=== PATIENT | male | born 1955 | race Caucasian/White ===

== ENCOUNTER 2020-04-26 22:32 | Inpatient (IN) | payer MEDICARE ==
[~2020-04-26 22:32] MED LIST: Iopamidol-370 76% 500 ML 1 ML ONE
[2020-04-26] MEDS ORDERED: Diltiazem 125 MG/25 ML ONE (23:09)
[2020-04-26 23:22] LABS: #Eosinphils 0.1 thou/uL (0.0-0.7); #Lymphocytes 2.6 thou/uL (1.20-3.40); #Monocytes 0.6 thou/uL (0.11-0.59); #Neutrophils 8.4 thou/uL (1.40-6.50); %Basophils 0.3 % (0.0-1.0); %Eosinophils 1.1 % (0.0-10.0); %Lymphocytes 21.7 % (21.0-51.0); %Monocytes 5.5 % (0.0-10.0); %Neutrophils 71.4 % (42.0-75.0); Hemoglobin 15.3 g/dL (14.0-18.0); Mean Corpuscular HGB CONC 33.4 g/dL (32.0-36.0); Mean Corpuscular Hemoglobin 31.3 pg (27.0-31.0); Mean Corpuscular Volume 93.6 fL (78.0-98.0); Mean Platelet Volume 7.6 fL (7.4-10.4); Platelet Count 219 thou/uL (130-400); RBC Distribution Width 12.6 % (11.5-14.5); Red Blood Cell (RBC) Count 4.91 mill/uL (4.70-6.10); White Blood Cell (WBC) Count 11.8 thou/uL (4.8-10.8)
[2020-04-26 23:47] LABS: ALT (SGPT) 63 U/L (8-55); AST (SGOT) 80 U/L (5-34); Albumin 4.2 g/dL (3.4-4.8); Alkaline Phosphatase 93 U/L (40-110); Anion Gap 17 mmol/L (10-20); BUN (Urea Nitrogen) 18 mg/dL (8.4-25.7); Bilirubin, Total 0.6 mg/dL (0.2-1.2); Calc. Creatinine Clearance 0 mL/min (70-130); Carbon Dioxide 23 mmol/L (23-31); Chloride 103 mmol/L (98-107); Globulin 3.7 g/dL (2.4-3.5); Glucose 215 mg/dL (80-115); Potassium 4.3 mmol/L (3.5-5.1); Protein, Total 7.9 g/dL (5.8-8.1); Sodium 139 mmol/L (136-145)
[2020-04-27 00:08] LABS: CKMB 6.6 ng/mL (0-6.6)
[2020-04-27 00:17] LABS: Calcium 9.1 mg/dL (7.8-10.44)
[2020-04-27 00:45] LABS: SARS-CoV-2 NAA Rapid Test DETECTED (NotDetected)
[2020-04-27] MEDS ORDERED: Aspirin 325 MG TAB ONE (01:02)
[2020-04-27 03:03] LABS: Troponin I 0.546 ng/mL (< 0.028)
[2020-04-27 03:21] VITALS: BMI 35.5
[2020-04-27] MEDS ORDERED: Acetaminophen 325 MG TAB PO PRN (04:04)
--- NOTE | 2020-04-27 04:04 | PDOC.HHP ---
Hospitalist HPI - History of Present Illness Shortness of breath History of Present Illness: This is a 64-year-old male patient with a history of hypertension who presents to the ED today with worsening cough and shortness of breath. Patient notes that his had Covid about 3 to 4 weeks ago and subsequently started having symptoms which she has not was Covid. These were initially mild however they have become significantly worse. He has had no test before today. On presentation Covid test was positive. He denied any associated chest pain or palpitations or fevers however he had a fatigability and generalized weakness. He denied any diarrhea. At presentation his blood pressure was 217/166, respiratory rate 45, temperature 99.1, saturating on room air between 95 and 99. His labs showed leukocytosis of 11.8, no bands, chemistry showed hyperglycemia of 215, AST 80 ALT 63 and troponin was elevated at 0.603. Chest x-ray was concerning for mild bilateral infiltrates. CTA was negative for PE. While being monitored he went into A. fib with RVR with heart rate above the 120s and was started on Cardizem drip which led to control of his heart rate. He also received aspirin prior to hospitalist consulted for admission. Hospitalist ROS - Review of Systems Constitutional: reports: weakness, malaise. denies: fever, chills, sweats Respiratory: reports: cough, dry, shortness of breath, SOB with excertion. denies: hemoptysis Cardiovascular: denies: chest pain, palpitations, orthopnea, paroxysmal noc. dyspnea Gastrointestinal: denies: nausea, vomiting, abdominal pain, diarrhea Genitourinary: denies: dysuria, frequency, incontinence, hematuria Neurological: denies: weakness, numbness, incoordination, change in speech All other systems reviewed; all pertinent +/- noted in HPI/Subj - Medication Medications: Medications: Currently refer to ambulatory list. Allergies: No known drug allergies. Hospitalist History - Past Medical History Cardiac: reports: HTN - Past Surgical History Past Surgical History: reports: no pertinent history - Family History Family History: reports: no pertinent history - Social History Smoking Status: Never smoker Alcohol: reports: None Living Situation: With Family Activity level: independent ambulation - Exam General Appearance: awake alert General - other findings: Morbidly obese ENT: normocephalic atraumatic Heart: RRR, no murmur, no gallops (Tachycardic), no rubs, normal peripheral pulses Respiratory: CTAB, no wheezes, no rales, no ronchi Gastrointestinal: soft, non-tender, non-distended, normal bowel sounds Extremities: no cyanosis, no clubbing, no edema Neurological: cranial nerve grossly intact, no focal deficits Psychiatric: normal affect, normal behavior, A&O x 3 Hospitalist Results - Labs Result Diagrams: 04/28/20 05:08 04/28/20 05:08 Lab results: WBC 11.8 thou/uL (4.8-10.8) H 04/26/20 23:07 Hgb 15.3 g/dL (14.0-18.0) 04/26/20 23:07 Hct 45.9 % (42.0-52.0) 04/26/20 23:07 MCV 93.6 fL (78.0-98.0) 04/26/20 23:07 Plt Count 219 thou/uL (130-400) 04/26/20 23:07 Neutrophils % 71.4 % (42.0-75.0) 04/26/20 23:07 Sodium 139 mmol/L (136-145) 04/26/20 23:07 Potassium 4.3 mmol/L (3.5-5.1) 04/26/20 23:07 Chloride 103 mmol/L (98-107) 04/26/20 23:07 Carbon Dioxide 23 mmol/L (23-31) 04/26/20 23:07 BUN 18 mg/dL (8.4-25.7) 04/26/20 23:07 Creatinine 1.18 mg/dL (0.7-1.3) 04/26/20 23:07 Glucose 215 mg/dL (80-115) H 04/26/20 23:07 Calcium 9.1 mg/dL (7.8-10.44) 04/26/20 23:07 Total Bilirubin 0.6 mg/dL (0.2-1.2) 04/26/20 23:07 AST 80 U/L (5-34) H 04/26/20 23:07 ALT 63 U/L (8-55) H 04/26/20 23:07 Alkaline Phosphatase 93 U/L (40-110) 04/26/20 23:07 CK-MB (CK-2) 6.6 ng/mL (0-6.6) 04/26/20 23:07 Troponin I 0.546 ng/mL (< 0.028) H* 04/27/20 02:30 B-Natriuretic Peptide 325.1 pg/mL (0-100) H 04/26/20 23:07 Serum Total Protein 7.9 g/dL (5.8-8.1) 04/26/20 23:07 Albumin 4.2 g/dL (3.4-4.8) 04/26/20 23:07 Hospitalist H&P A/P - Plan Plan: This is a 64-year-old male patient history of hypertension and obesity presenting with worsening shortness of breath in the setting of Covid 19 infection. New onset A. fib with RVR Possible triggersCovid, ACS, uncontrolled hypertension among others. Currently resolved with diltiazem Monitor on telemetry Echocardiogram in a.m. Cardiology consult in a.m. NSTEMI Troponin elevated at 0.6 Possible ACS but likely secondary to A. fib with RVR He does not have any chest pain no concerning EKG changes however He has risk factors of obesity and hypertension which has been uncontrolled. Start him on Lovenox for now pending review by cardiology COVID-19 infection Start zinc and vitamins Consider starting steroids in a.m. if he requires oxygen. Follow-up D-dimer, CRP and ferritin Hold remdesivir ID consult Hypertension Resume home blood pressure medications VT prophylaxisLovenox CODE STATUSfull code
[2020-04-27] MEDS ORDERED: Enoxaparin Sodium 100 MG/ML SYRINGE SC SCH (04:10)
[2020-04-27] MEDS ORDERED: HumaLOG 300 UNITS/3 ML VIAL SC PRN (04:12)
[2020-04-27] MEDS ORDERED: Dextrose 50% Abboject 50 ML SYRINGE SLOW IVP PRN (04:12)
[2020-04-27] MEDS ORDERED: Dextrose 5% in Water 1,000 ML IV PRN (04:12)
[2020-04-27] MEDS ORDERED: Enoxaparin Sodium 120 MG/0.8 ML SYRINGE SC SCH ×2 (04:15→21:00)
[2020-04-27 05:42] LABS: Hemoglobin A1c 5.7 % (4.0-6.0)
[2020-04-27 06:23] LABS: Cardiac Risk 3.8 (Less than 4.5)
--- NOTE | 2020-04-27 07:16 | RAD ---
PORTABLE CHEST: Date: 04/26/2020 HISTORY: Shortness of breath. FINDINGS: Heart size appears slightly enlarged. Pulmonary vessels are mildly engorged. Some bibasilar lung bonilla ges are present which could represent atelectasis or early infiltrate. It is difficult to exclude дмитрий e minimal ground-glass infiltrates on this exam. Slight blunting to the costophrenic angles is presen t. IMPRESSION: Cardiomegaly with mild vascular engorgement. Bibasilar lung changes could be on the basis of atelecta sis versus early infiltrate, perhaps with small effusions. POS: OFF
--- NOTE | 2020-04-27 07:30 | CT ---
PRELIMINARY REPORT/DIRECT RADIOLOGY/EMERGENCY AFTER HOURS PROCEDURE: EXAM: CTA Chest with Intravenous Contrast CLINICAL HISTORY: The patient reports that over the past several weeks he has had a cough with some s hortness of breath. He states that it has been significantly worse over the past 2 days. He also endorses having sensation of palpitations. He denies any significant pain in his chest. No fevers. He does note that his recently tested positive for Covid approximately 3 or 4 weeks ago. TECHNIQUE: Axial CTA images of the chest with intravenous contrast. Three-dimensional MIP/volume rend ered reformations were performed. CONTRAST: With; ISOVUE 370,80mL COMPARISON: None provided. FINDINGS: PULMONARY ARTERIES There is no intraluminal filling defect suspicious for PE. AORTA No thoracic aortic aneurysm or dissection. LUNGS There is mild atelectasis identified in both lower lungs. Moderate bilateral effusions are not ed. No consolidation. PLEURAL SPACES Moderate bilateral effusions are noted. No pneumothorax. HEART AND MEDIASTINUM No cardiomegaly. No significant pericardial effusion. LYMPH NODES No lymphadenopathy. BONES No focal osseous abnormality or acute fracture. CHEST WALL AND UPPER ABDOMEN Images through the upper abdomen are unremarkable. The chest wall is unr emarkable. IMPRESSION: There is mild atelectasis in both lower lungs. Moderate bilateral effusions are noted. No evidence of a consolidation. No pneumothorax. There is no evidence of pulmonary arterial emboli. ELECTRONICALLY SIGNED BY: Eduarda Way DO Apr 27, 2020 1:29:40 AM [employer] FINAL REPORT CTA ANGIO CHEST WITH AND WITHOUT CONTRAST: History: Dyspnea. Comparison: Radiograph prior day. Findings: CT angiogram chest performed after the intravenous ministration of contrast. 3-D rendering provided. Impression: Findings and impression are concordant with the preliminary report. No pulmonary embolism. Moderate d ecompensated congestive heart failure. Transcribed Date/Time: 04/27/2020 7:38 AM
[2020-04-27] MEDS: Zinc Sulfate 220 MG CAP PO SCH (08:54)
[2020-04-27] MEDS: Aspirin 81 mg Enteric Coated Tablet PO SCH (08:54)
[2020-04-27] MEDS: Ascorbic Acid 500 mg Chewable Tablet PO SCH (08:54)
[2020-04-27] MEDS: Cholecalciferol (Vitamin D3) 400 UNITS TAB PO SCH (08:54)
[2020-04-27] MEDS ORDERED: Dexamethasone 4 mg/ml Vial SLOW IVP SCH (09:00)
[2020-04-27] MEDS ORDERED: Enoxaparin Sodium 40 MG/0.4 ML SYRINGE SC SCH (09:00)
[2020-04-27] MEDS ORDERED: Amlodipine 10 MG TAB PO SCH (09:00)
--- NOTE | 2020-04-27 09:35 | PDOC.CONS ---
- Consultation Encounter Date: 04/27/20 Encounter Time: 09:30
[2020-04-27 09:43] LABS: Troponin I 0.853 ng/mL (< 0.028)
--- NOTE | 2020-04-27 09:59 | PDOC.HOSPP ---
- Subjective Encounter Date: 04/27/20 Encounter Time: 09:57 Subjective: Mr. Putnam was seen today in follow-up of new onset AFIb. He does not have any complaints. He did however note that he had some shortness of breath last night, while he was sleeping. He also noted that his oxygen saturations dropped last night,. and he has been using oxygen since. He denies chest pain. - Objective Vital Signs & Weight: Vital Signs (12 hours) Temp Pulse Resp BP Pulse Ox 04/27/20 08:54 99 04/27/20 03:22 98.1 F 99 28 H 178/95 H 97 Weight Weight 244 lb I&O: 04/26/20 04/27/20 04/28/20 06:59 06:59 06:59 Intake Total 245 Output Total 300 Balance -55 Result Diagrams: 04/26/20 23:07 04/26/20 23:07 Hospitalist ROS - Medication Medications: Active Medications Generic Name Dose Route Start Last Admin Trade Name Freq PRN Reason Stop Dose Admin Amlodipine Besylate 10 mg 04/27/20 09:00 04/27/20 08:54 Amlodipine 10 Mg Tab PO 10 mg DAILY MASSIMO Administration Ascorbic Acid 1,000 mg 04/27/20 09:00 04/27/20 08:54 Ascorbic Acid 500 Mg Chewable Tablet PO 1,000 mg DAILY MASSIMO Administration Aspirin 81 mg 04/27/20 09:00 04/27/20 08:54 Aspirin 81 Mg Enteric Coated Tablet PO 81 mg DAILY MASSIMO Administration Cholecalciferol 400 units 04/27/20 09:00 04/27/20 08:54 Cholecalciferol (Vitamin D3) 400 Units Tab PO 400 units DAILY MASSIMO Administration Dexamethasone 8 mg 04/27/20 09:00 04/27/20 08:54 Dexamethasone 4 Mg/Ml Vial SLOW IVP 8 mg DAILY MASSIMO Administration Enoxaparin Sodium 110 mg 04/27/20 21:00 04/27/20 09:01 Enoxaparin Sodium 120 Mg/0.8 Ml Syringe SC 110 mg 0900,2100 MASSIMO Administration Zinc Sulfate 220 mg 04/27/20 09:00 04/27/20 08:54 Zinc Sulfate 220 Mg Cap PO 220 mg DAILY MASSIMO Administration - Exam General Appearance: NAD, awake alert Eye: PERRL, anicteric sclera ENT: normocephalic atraumatic Neck: no JVD Heart: irregular, murmur present, II/IV Respiratory: no wheezes, no ronchi, rales (at the bases) Gastrointestinal: soft, non-tender, non-distended, normal bowel sounds, no palpable masses, no hepatomegaly Extremities: no cyanosis (+ good d.p. pulses bilaterally no lesions), no edema Hosp A/P (1) New onset atrial fibrillation Code(s): I48.91 - UNSPECIFIED ATRIAL FIBRILLATION Status: Acute (2) Hypertension Code(s): I10 - ESSENTIAL (PRIMARY) HYPERTENSION Status: Chronic (3) CHF (congestive heart failure) Code(s): I50.9 - HEART FAILURE, UNSPECIFIED Status: Acute (4) Pneumonia due to COVID-19 virus Code(s): U07.1 - COVID-19; J12.82 - PNEUMONIA DUE TO CORONAVIRUS DISEASE 2018 Status: Acute (5) NSTEMI (non-ST elevated myocardial infarction) Code(s): I21.4 - NON-ST ELEVATION (NSTEMI) MYOCARDIAL INFARCTION Status: Acute - Plan * AFIB with RVR- his heart rate has improved. He is now off the Cardizem drip- continue Lovenox for CVA preventions, and will attempt to obtain an Echo * Will await Cardiology recommendations * HTN- will place on a low dose Beta-tyra and consider TOYA-I * NSTEMI- Carvediolol, Nitrates, and check Lipid panel, * CHF- this may be due to AFIB, await Echo, and Lasix as needed * COVID infection- he believes this is remote infection. He had symptoms beginning about a month ago, which got better, and then over the past 3-4 days he began feeling short of breath again- this may be due to CHF, or he may have a superinfection with a bacterial pneumonia- will add Levaquin
[2020-04-27] MEDS ORDERED: hydrALAZINE 25 MG TAB PO PRN (10:10)
[2020-04-27] MEDS ORDERED: Metoprolol Tartrate 5 MG/5 ML VIAL IVP PRN (10:11)
--- NOTE | 2020-04-27 11:17 | CON ---
DATE OF CONSULTATION: HISTORY OF PRESENT ILLNESS: The patient is a very pleasant 64-year-old gentleman who presents for evaluation of dyspnea. The patient states he has a history of a heart murmur. The patient also has hypertension. The patient was on lisinopril for a period of time. The patient has not been followed up by a physician for several years. The patient reported having progressive dyspnea over the past several weeks. He presented to the emergency room and was noted to have a rapid irregular heart rhythm. The patient denied having any chest discomfort. PAST MEDICAL HISTORY: Hypertension. PAST SURGICAL HISTORY: Surgery on his big toe surgery. MEDICATIONS ON ADMISSION: 1. Aspirin half a tablet daily. 2. Meclizine. SOCIAL HISTORY: Nonsmoker. ALLERGIES: NO KNOWN DRUG ALLERGIES. REVIEW OF SYSTEMS: A 10-point system unremarkable. PHYSICAL EXAMINATION: GENERAL: A well-developed gentleman, in no acute distress. VITAL SIGNS: Blood pressure was 178/95. NECK: No jugular venous distention. LUNGS. He had a few crackles in both bases. HEART: Regular rate and rhythm. Normal S1 and S2 with a 3/6 systolic murmur. ABDOMEN: Distended. EXTREMITIES: Trace edema. VASCULAR: Radial pulses 2+. LABORATORY DATA: Sodium 139, potassium 4.3, chloride 103, bicarbonate 23, BUN 18, creatinine 1.1, glucose is 215, and AST is 80. Troponin was 0.603 with an MB of 6.6. White blood cell count 11.8, hemoglobin 15.3, hematocrit 45.0, and platelets 219. EKG atrial fibrillation with a rapid ventricular response and ST-T wave abnormality, suggestive of ischemia. Chest x-ray cardiomegaly with mild vascular engorgement. IMPRESSION: 1. COVID pneumonia. 2. Atrial fibrillation with a rapid ventricular response. 3. Elevated troponin level. 4. Probable aortic stenosis. 5. Hypertension. 6. Obesity. This gentleman presents with a COVID pneumonia and rapid atrial fibrillation. The patient has a type 2 myocardial infarction most likely secondary to his atrial fibrillation with rapid ventricular response. From a cardiac standpoint, I would recommend to be started on a beta-tyra therapy. The patient will be rate controlled when he recovers from his COVID. I would recommend an echocardiogram and stress testing. The patient should be on long-term anticoagulation as he has a CHADS-VASc score of 2. I will follow this patient with you through his hospitalization. Job ID: [id number] MTDD
[2020-04-27 12:02] LABS: Cardiac Risk 3.8 (Less than 4.5)
[2020-04-27] MEDS ORDERED: Nitroglycerin 2% Ointment 1 INCH/1 GM Packet TOP SCH (14:00)
[2020-04-27] MEDS ORDERED: Carvedilol 6.25 MG TAB PO SCH (17:00)
[2020-04-27] MEDS: Atorvastatin Calcium 40 MG TAB PO SCH (19:59)
[2020-04-27] MEDS: Enoxaparin Sodium 120 MG/0.8 ML SYRINGE SC SCH (20:01)
[2020-04-28 05:26] LABS: #Lymphocytes 1.8 thou/uL (1.20-3.40); #Monocytes 0.8 thou/uL (0.11-0.59); #Neutrophils 10.3 thou/uL (1.40-6.50); %Basophils 0.1 % (0.0-1.0); %Eosinophils 0.1 % (0.0-10.0); %Lymphocytes 13.6 % (21.0-51.0); %Monocytes 6.5 % (0.0-10.0); %Neutrophils 79.8 % (42.0-75.0); Hemoglobin 12.8 g/dL (14.0-18.0); Mean Corpuscular Hemoglobin 30.9 pg (27.0-31.0); Mean Corpuscular Volume 93.8 fL (78.0-98.0); Mean Platelet Volume 7.7 fL (7.4-10.4); Platelet Count 192 thou/uL (130-400); RBC Distribution Width 12.4 % (11.5-14.5); Red Blood Cell (RBC) Count 4.13 mill/uL (4.70-6.10); White Blood Cell (WBC) Count 12.9 thou/uL (4.8-10.8)
[2020-04-28 05:43] LABS: Anion Gap 12 mmol/L (10-20); BUN (Urea Nitrogen) 19 mg/dL (8.4-25.7); Calc. Creatinine Clearance 131 mL/min (70-130); Calcium 8.7 mg/dL (7.8-10.44); Carbon Dioxide 27 mmol/L (23-31); Chloride 104 mmol/L (98-107); Glucose 120 mg/dL (80-115); Potassium 4.4 mmol/L (3.5-5.1); Sodium 139 mmol/L (136-145)
[2020-04-28] MEDS: Zinc Sulfate 220 MG CAP PO SCH (08:27)
[2020-04-28] MEDS: Aspirin 81 mg Enteric Coated Tablet PO SCH (08:27)
[2020-04-28] MEDS: Cholecalciferol (Vitamin D3) 400 UNITS TAB PO SCH (08:27)
[2020-04-28] MEDS: Ascorbic Acid 500 mg Chewable Tablet PO SCH (08:27)
[2020-04-28] MEDS: Dexamethasone 6 MG in Sodium Chloride 0.9% 50 ML IVPB SCH (08:28)
[2020-04-28] MEDS: Enoxaparin Sodium 120 MG/0.8 ML SYRINGE SC SCH (08:28)
--- NOTE | 2020-04-28 11:25 | PDOC.HOSPP ---
- Subjective Encounter Date: 04/28/20 Encounter Time: 11:22 Subjective: Mr. Putnam was seen today in follow-up of AFIB with RVR. He says he feels ok. He is breathing better. - Objective Vital Signs & Weight: Vital Signs (12 hours) Temp Pulse Resp BP Pulse Ox 04/28/20 08:00 97.2 F L 83 17 155/88 H 97 04/28/20 03:55 97.9 F 68 19 117/72 95 04/28/20 00:00 98.8 F 86 20 139/75 96 Weight Weight 244 lb I&O: 04/27/20 04/28/20 04/29/20 06:59 06:59 06:59 Intake Total 245 1340 Output Total 300 800 Balance -55 540 Result Diagrams: 04/28/20 05:08 04/28/20 05:08 Hospitalist ROS - Medication Medications: Active Medications Generic Name Dose Route Start Last Admin Trade Name Freq PRN Reason Stop Dose Admin Ascorbic Acid 1,000 mg 04/27/20 09:00 04/28/20 08:27 Ascorbic Acid 500 Mg Chewable Tablet PO 1,000 mg DAILY MASSIMO Administration Aspirin 81 mg 04/27/20 09:00 04/28/20 08:27 Aspirin 81 Mg Enteric Coated Tablet PO 81 mg DAILY MASSIMO Administration Atorvastatin Calcium 40 mg 04/27/20 21:00 04/27/20 19:59 Atorvastatin Calcium 40 Mg Tab PO 40 mg HS MASSIMO Administration Cholecalciferol 400 units 04/27/20 09:00 04/28/20 08:27 Cholecalciferol (Vitamin D3) 400 Units Tab PO 400 units DAILY MASSIMO Administration Dexamethasone 6 mg/ Sodium 51.5 mls @ 100 mls/hr 04/28/20 09:00 04/28/20 08:28 Chloride IVPB 51.5 mls DAILY MASSIMO Administration Levofloxacin 500 mg/ Device 100 mls @ 100 mls/hr 04/27/20 11:00 04/28/20 10:11 IVPB 100 mls Q24HR MASSIMO Administration Metoprolol Succinate 25 mg 04/27/20 21:00 04/28/20 08:28 Metoprolol Succinate Xl 25 Mg Tab PO 25 mg BID MASSIMO Administration Sodium Chloride 10 ml 04/27/20 21:00 04/28/20 08:30 Flush - Normal Saline 10 Ml Syringe IVF 10 ml Q12HR MASSIMO Administration Zinc Sulfate 220 mg 04/27/20 09:00 04/28/20 08:27 Zinc Sulfate 220 Mg Cap PO 220 mg DAILY MASSIMO Administration - Exam Eye: PERRL, anicteric sclera Heart: RRR, no murmur, no gallops, no rubs, normal peripheral pulses Respiratory: CTAB, no wheezes, no rales, no ronchi, normal chest expansion, no tachypnea, normal percussion Gastrointestinal: soft, non-tender, non-distended, normal bowel sounds, no palpable masses, no hepatomegaly Extremities: no cyanosis, no edema Hosp A/P (1) New onset atrial fibrillation Code(s): I48.91 - UNSPECIFIED ATRIAL FIBRILLATION Status: Acute (2) Hypertension Code(s): I10 - ESSENTIAL (PRIMARY) HYPERTENSION Status: Chronic (3) CHF (congestive heart failure) Code(s): I50.9 - HEART FAILURE, UNSPECIFIED Status: Acute (4) Pneumonia due to COVID-19 virus Code(s): U07.1 - COVID-19; J12.82 - PNEUMONIA DUE TO CORONAVIRUS DISEASE 2019 Status: Acute (5) NSTEMI (non-ST elevated myocardial infarction) Code(s): I21.4 - NON-ST ELEVATION (NSTEMI) MYOCARDIAL INFARCTION Status: Acute - Plan * AFIB with RVR- his heart rate has improved. He is now on Metoprolol and Eliquis * NSTEMI- type 2- better with rate control * Community aquired pneumonia- continue Levaquin * If he can be weaned off of oxygen he can be discharged home tomorrow.
[2020-04-28] MEDS: Atorvastatin Calcium 40 MG TAB PO SCH (20:14)
[2020-04-28] MEDS: Apixaban 5 MG TAB PO SCH (20:40)
[2020-04-29] MEDS: Cholecalciferol (Vitamin D3) 400 UNITS TAB PO SCH (08:13)
[2020-04-29] MEDS: Zinc Sulfate 220 MG CAP PO SCH (08:13)
[2020-04-29] MEDS: Aspirin 81 mg Enteric Coated Tablet PO SCH (08:13)
[2020-04-29] MEDS: Ascorbic Acid 500 mg Chewable Tablet PO SCH (08:13)
[2020-04-29] MEDS: Apixaban 5 MG TAB PO SCH (08:14)
--- NOTE | 2020-04-29 08:44 | PDOC.HOSPP ---
- Subjective Encounter Date: 04/29/20 Encounter Time: 08:43 Subjective: was seen today in follow-up of new onset AFIB. He does not have any complaints. - Objective Vital Signs & Weight: Vital Signs (12 hours) Temp Pulse Resp BP Pulse Ox 04/29/20 07:41 96 04/29/20 04:00 97.4 F L 53 L 17 137/88 98 04/29/20 00:00 97.4 F L 86 17 137/95 H 96 Weight Weight 244 lb I&O: 04/28/20 04/29/20 04/30/20 06:59 06:59 06:59 Intake Total 1340 1390 Output Total 800 1150 Balance 540 240 Result Diagrams: 04/28/20 05:08 04/28/20 05:08 Hospitalist ROS - Medication Medications: Active Medications Generic Name Dose Route Start Last Admin Trade Name Freq PRN Reason Stop Dose Admin Acetaminophen 650 mg 04/27/20 04:04 04/28/20 20:13 Acetaminophen 325 Mg Tab PO 650 mg Q4H PRN Administration Headache/Fever/Mild Pain (1-3) Apixaban 5 mg 04/28/20 21:00 04/29/20 08:14 Apixaban 5 Mg Tab PO 5 mg BID MASSIMO Administration Ascorbic Acid 1,000 mg 04/27/20 09:00 04/29/20 08:13 Ascorbic Acid 500 Mg Chewable Tablet PO 1,000 mg DAILY MASSIMO Administration Aspirin 81 mg 04/27/20 09:00 04/29/20 08:13 Aspirin 81 Mg Enteric Coated Tablet PO 81 mg DAILY MASSIMO Administration Atorvastatin Calcium 40 mg 04/27/20 21:00 04/28/20 20:14 Atorvastatin Calcium 40 Mg Tab PO 40 mg HS MASSIMO Administration Cholecalciferol 400 units 04/27/20 09:00 04/29/20 08:13 Cholecalciferol (Vitamin D3) 400 Units Tab PO 400 units DAILY MASSIMO Administration Dexamethasone 6 mg/ Sodium 51.5 mls @ 100 mls/hr 04/28/20 09:00 04/28/20 08:28 Chloride IVPB 51.5 mls DAILY MASSIMO Administration Levofloxacin 500 mg/ Device 100 mls @ 100 mls/hr 04/27/20 11:00 04/28/20 10:11 IVPB 100 mls Q24HR MASSIMO Administration Metoprolol Succinate 25 mg 04/27/20 21:00 04/29/20 08:14 Metoprolol Succinate Xl 25 Mg Tab PO 25 mg BID MASSIMO Administration Sodium Chloride 10 ml 04/27/20 21:00 04/29/20 08:14 Flush - Normal Saline 10 Ml Syringe IVF 10 ml Q12HR MASSIMO Administration Zinc Sulfate 220 mg 04/27/20 09:00 04/29/20 08:13 Zinc Sulfate 220 Mg Cap PO 220 mg DAILY MASSIMO Administration - Exam Eye: PERRL, anicteric sclera Heart: RRR, no murmur, II/IV Respiratory: CTAB, no wheezes, no rales, no ronchi, normal chest expansion, no tachypnea Gastrointestinal: soft, non-tender, non-distended, normal bowel sounds, no palpable masses, no hepatomegaly, no splenomegaly Extremities: no cyanosis, no edema Hosp A/P (1) New onset atrial fibrillation Code(s): I48.91 - UNSPECIFIED ATRIAL FIBRILLATION Status: Acute (2) Hypertension Code(s): I10 - ESSENTIAL (PRIMARY) HYPERTENSION Status: Chronic (3) CHF (congestive heart failure) Code(s): I50.9 - HEART FAILURE, UNSPECIFIED Status: Acute (4) Pneumonia due to COVID-19 virus Code(s): U07.1 - COVID-19; J12.82 - PNEUMONIA DUE TO CORONAVIRUS DISEASE 2019 Status: Acute (5) NSTEMI (non-ST elevated myocardial infarction) Code(s): I21.4 - NON-ST ELEVATION (NSTEMI) MYOCARDIAL INFARCTION Status: Acute - Plan * AFIB with RVR- hear rate is controlled * Discussed woth Cardiology. He can be discharged home * Community acquired pneumonia- continue Adam
[2020-04-29] MEDS: Dexamethasone 6 MG in Sodium Chloride 0.9% 50 ML IVPB SCH (09:13)
--- NOTE | 2020-04-29 13:47 | PQF ---
CLINICAL DOCUMENTATION CLARIFICATION FORM: Dear Dr. Brooks Date: 04/29/20 Please exercise your independent, professional judgment in responding to the clarification form. Clinical indicators are provided on the bottom of this form for your review. Please check appropriate box(es): HEART FAILURE: TYPE: [ ] Systolic / HFrEF [ ] Diastolic / HFpEF [ ] Combined Systolic / Diastolic [ ] Hypertensive Heart and Kidney disease [ ] Hypertensive Heart Disease [ ] Hypertensive Kidney Disease [ ] Other diagnosis [ X ] Unable to determine- Unable to perform Echo due to COVID status In addition, please specify: Present on Admission (POA): [ ] Yes [ ] No [ ] Unable to determine For continuity of documentation, please document condition throughout progress notes and discharge summary. Thank You. To be completed by CDI/Coding staff for physician review: CLINICAL INDICATORS - SIGNS / SYMPTOMS / LABS / RESULTS AND LOCATION IN EMR PN 04/29 (CYNTHIA): "ACUTE CHF" BNP 04/26: 325.1 RISKS FACTORS / RESULTS AND LOCATION IN EMR HTN (PN 04/29) NEW ONSET AFIB (PN 04/29) NSTEMI 2(PN 04/29) TREATMENTS / RESULTS AND LOCATION IN EMR CARDIOLOGY CONSULT CARDIAC MONITORING CHEST XRAY 04/26 CDS Signature: Jenna Vick RN Phone #: [phone] Date: 04/29/20 This is a permanent part of the Medical Record [id number]
[2020-04-29 15:36] VITALS: BP 133/88; TEMP 97.1
--- NOTE | 2020-04-29 17:49 | PDOC.DS.DS ---
Provider - Provider Date of Admission: 04/27/20 11:19 Date of Discharge: 04/29/20 Admitting Provider: Oseas Gusman MD Primary Care Physician: NO PCP PROVIDER Course - Hospital Course Hospital Course: Mr. Putnam is a pleasant 64-year-old gentleman that has a history of hypertension. He presented to the emergency room with cough and worsening shortness of breath. He had cough and shortness of breath about 3 weeks to 4 weeks prior to admission. Around about the same time his had tested positive for COVID-19. He assumed that he had this infection at that time but was never tested. He felt like he got better and then after a week or 2 started having shortness of breath and some cough again. For this reason he came to the emergency room and was evaluated. He was found to be COVID-19 positive. He was also found to be in atrial fibrillation with rapid ventricular response. He was admitted to the isolation and started on IV Cardizem. The following day his rate with regards to the atrial fibrillation was controlled. Since this was a new onset cardiology was consulted. He was ultimately placed on metoprolol for rate control as well as Eliquis for CVA prevention. Due to his Covid positive status he was unable to undergo an echocardiogram or stress test. He was essentially asymptomatic with regards to the Covid positive status and it is l ikely that he had already recovered from the COVID-19 infection and the cough and shortness of breath was more likely a bacterial superinfection or mild heart failure exacerbation. Once he was clinically stable he was able to be discharged home and he will be discharged on a short coat course of Levaquin in addition to the metoprolol and Eliquis. Of note he never required any oxygen during his hospital stay. Pertinent Studies: CTA of Chest Resuscitation Status: 04/27/20 04:04 Resuscitation Status Routine Resuscitation Status: FULL: Full Resuscitation - Labs Lab Results: 04/28/20 05:08 04/28/20 05:08 Abnormal Lab Results - Last 48 hrs 04/28/20 05:08: WBC 12.9 H, RBC 4.13 L, Hgb 12.8 L, Hct 38.7 L, Neutrophils % 79.8 H, Lymphocytes % 13.6 L, Neutrophils # 10.3 H, Monocytes # 0.8 H - Physical Exam Vitals: Vital Signs (12 hours) Temp Pulse Resp BP Pulse Ox 04/29/20 12:00 97.1 F L 64 17 133/88 98 04/29/20 08:00 96.5 F L 61 18 135/90 99 04/29/20 07:41 96 Weight Weight 244 lb Physical Exam: The patient was seen and examined on the day of discharge. Problem - Problem (1) New onset atrial fibrillation Code(s): I48.91 - UNSPECIFIED ATRIAL FIBRILLATION Status: Acute (2) Hypertension Code(s): I10 - ESSENTIAL (PRIMARY) HYPERTENSION Status: Chronic (3) CHF (congestive heart failure) Code(s): I50.9 - HEART FAILURE, UNSPECIFIED Status: Acute (4) Pneumonia due to COVID-19 virus Code(s): U07.1 - COVID-19; J12.82 - PNEUMONIA DUE TO CORONAVIRUS DISEASE 2019 Status: Acute (5) NSTEMI (non-ST elevated myocardial infarction) Code(s): I21.4 - NON-ST ELEVATION (NSTEMI) MYOCARDIAL INFARCTION Status: Acute Plan - Discharge Medications Prescriptions: Apixaban [Eliquis] 5 mg PO BID #60 tab Levofloxacin [Levaquin] 500 mg PO DAILY #5 tab Metoprolol Succinate [Toprol XL] 25 mg PO BID #60 tab Home Medications: Medication Instructions Recorded Confirmed Type Meclizine HCl 25 mg PO DAILY 04/27/20 04/27/20 History Apixaban [Eliquis] 5 mg PO BID #60 tab 04/29/20 Rx Levofloxacin [Levaquin] 500 mg PO DAILY #5 tab 04/29/20 Rx Metoprolol Succinate [Toprol XL] 25 mg PO BID #60 tab 04/29/20 Rx Allergies: No Known Allergies Allergy (Verified 04/27/20 03:36) per pt - Discharge Instructions Activity:: Activity as Tolerated Nourishment:: Heart Healthy Diet - Follow up Plan Referrals: PROVIDER,NO PCP [Primary Care Provider] - 7 Days (pt needs to get a primary doctor.) Dre Gavin MD [Active] - 05/20/20 8:45 am (please go to room 220 with laura for ECHO. Then go to room [address] gavin at 0945.) Disposition: HOME Quality - Care Measures CORE MEASURES:: N/A
--- NOTE | 2020-05-15 21:02 | EKG ---
Test Reason : Blood Pressure : / mmHG Vent. Rate : 160 BPM Atrial Rate : 153 BPM P-R Int : 000 ms QRS Dur : 090 ms QT Int : 274 ms P-R-T Axes : 000 083 265 degrees QTc Int : 447 ms Atrial fibrillation with rapid ventricular response Anteroseptal infarct , age undetermined Abnormal ECG Confirmed by SEBAS LOMAS ([id number]), assistant editor BRIGIDA YOUNG ([id number]) on 05/15/2020 9:01:34 PM Referred By: Confirmed By:SEBAS LOMAS
== END 2020-04-29 15:30 | disposition home or self-care (01) | DRG 280 ==
LOC: ERS 22:32 → 2SE 04-27 02:17 → OBSVTOIN 04-27 11:19
PROVIDERS: ADMIT Student in an Organized Health Care Education/Training Program; ATTEND Internal Medicine
PROC: 8E0ZXY6 Isolation (ICD-10-PCS; principal; 2020-04-27)
DX: I11.0 Hypertensive heart disease with heart failure (principal); U07.1 COVID-19; I21.A1 Myocardial infarction type 2; J15.9 Unspecified bacterial pneumonia; J12.82 Pneumonia due to coronavirus disease 2019; I50.9 Heart failure, unspecified; I48.91 Unspecified atrial fibrillation; E66.9 Obesity, unspecified; Z79.82 Long term (current) use of aspirin; Z79.899 Other long term (current) drug therapy
CPT/HCPCS: 0240U; 36415; 71045; 71275; 80048; 80053; 80061; 82553; 82728; 83036; 83880; 84443; 84484; 85025; 85379; 86140; 93005; 96365; 96366; 96372; 96375; 96376; G0378; J1100; J1650; J1956; Q9967

== ENCOUNTER 2020-06-01 06:15 | Inpatient (IN) | payer MEDICARE ==
[2020-06-01] MEDS ORDERED: hydrALAZINE 20 MG/ML VIAL ONE (07:27)
[2020-06-01] MEDS ORDERED: PROPOFOL 20 ML ONE (07:38)
[2020-06-01] MEDS ORDERED: Furosemide 40 MG/4 ML VIAL ONE ×2 (08:02→09:16)
[2020-06-01] MEDS ORDERED: Morphine 2 MG/ML VIAL ONE (08:05)
[2020-06-01] MEDS ORDERED: Nitroglycerin 2% Ointment 1 INCH/1 GM Packet ONE (08:09)
[2020-06-01] MEDS ORDERED: Nitroglycerin 50 MG/250 ML BOT 250 ML ONE (08:09)
[2020-06-01] MEDS ORDERED: Digoxin 0.5 MG/2 ML AMP ONE (08:45)
[2020-06-01] MEDS ORDERED: Furosemide 40 MG/4 ML VIAL SLOW IVP SCH ×2 (09:30→16:15)
[2020-06-01] MEDS ORDERED: Nitroglycerin 50 MG/250 ML BOT 250 ML IVPB SCH (09:30)
[2020-06-01] MEDS ORDERED: Digoxin 0.5 MG/2 ML AMP SLOW IVP SCH (09:30)
[2020-06-01 09:34] LABS: #Lymphocytes 1.3 thou/uL (1.20-3.40); #Monocytes 0.5 thou/uL (0.11-0.59); #Neutrophils 7.2 thou/uL (1.40-6.50); %Basophils 0.3 % (0.0-1.0); %Eosinophils 0.4 % (0.0-10.0); %Lymphocytes 14.4 % (21.0-51.0); %Monocytes 5.7 % (0.0-10.0); %Neutrophils 79.1 % (42.0-75.0); Hemoglobin 14.3 g/dL (14.0-18.0); Mean Corpuscular HGB CONC 32.3 g/dL (32.0-36.0); Mean Platelet Volume 7.9 fL (7.4-10.4); Platelet Count 195 thou/uL (130-400); RBC Distribution Width 12.8 % (11.5-14.5); Red Blood Cell (RBC) Count 4.61 mill/uL (4.70-6.10); White Blood Cell (WBC) Count 9.1 thou/uL (4.8-10.8)
[2020-06-01] MEDS ORDERED: Albuterol 200 PUFF (6.7GM INHALER) INH SCH (09:45)
[2020-06-01 09:54] LABS: Anion Gap 16 mmol/L (10-20); BUN (Urea Nitrogen) 17 mg/dL (8.4-25.7); Calc. Creatinine Clearance 110 mL/min (70-130); Calcium 9.1 mg/dL (7.8-10.44); Carbon Dioxide 25 mmol/L (23-31); Chloride 104 mmol/L (98-107); Cholesterol 170 mg/dl (< 200 Desired); Glucose 133 mg/dL (80-115); HDL Cholesterol 43 mg/dL (>60 Neg Risk); LDL Cholesterol, Calculated 114 mg/dL; Sodium 141 mmol/L (136-145); Triglycerides 63 mg/dL (Less than 150)
[2020-06-01] MEDS ORDERED: Lisinopril 20 MG TAB PO SCH ×2 (12:00→13:00)
[2020-06-01] MEDS ORDERED: Tamsulosin HCl 0.4 MG CAP PO SCH (16:45)
[2020-06-01] MEDS ORDERED: Dofetilide 0.25 MG CAP PO SCH ×2 (17:30→21:00)
[2020-06-01] MEDS: Dofetilide 0.125 MG CAP PO SCH (17:48)
[2020-06-01] MEDS: Enoxaparin Sodium 120 MG/0.8 ML SYRINGE SC SCH (20:06)
[2020-06-01] MEDS: Lisinopril 20 MG TAB PO SCH (20:07)
[2020-06-01] MEDS ORDERED: Apixaban 5 MG TAB PO SCH (21:00)
[2020-06-02 04:09] LABS: Anion Gap 11 mmol/L (10-20); BUN (Urea Nitrogen) 20 mg/dL (8.4-25.7); Calc. Creatinine Clearance 127 mL/min (70-130); Calcium 8.3 mg/dL (7.8-10.44); Carbon Dioxide 31 mmol/L (23-31); Chloride 102 mmol/L (98-107); Glucose 95 mg/dL (80-115); Sodium 140 mmol/L (136-145)
[2020-06-02] MEDS: Dofetilide 0.125 MG CAP PO SCH ×2 (05:24→17:28)
[2020-06-02] MEDS: Furosemide 40 MG/4 ML VIAL SLOW IVP SCH ×2 (05:24→15:00)
[2020-06-02] MEDS: Enoxaparin Sodium 120 MG/0.8 ML SYRINGE SC SCH ×2 (08:28→20:04)
[2020-06-02] MEDS: Lisinopril 20 MG TAB PO SCH ×2 (08:29→20:04)
[2020-06-02] MEDS: Multivit, Therapeutic 1 TAB PO SCH (08:29)
[2020-06-02] MEDS: Meclizine HCl 25 MG TAB PO SCH (08:29)
[2020-06-02] MEDS ORDERED: Tamsulosin HCl 0.4 MG CAP PO SCH (09:00)
[2020-06-02] MEDS ORDERED: PROPOFOL 200 MG/20 ML VIAL ONE (09:31)
[2020-06-02] MEDS: Tamsulosin HCl 0.4 MG CAP PO SCH (12:42)
[2020-06-02] MEDS ORDERED: Spironolactone 25 MG TAB PO SCH (16:30)
[2020-06-02] MEDS ORDERED: Albuterol 200 PUFF (6.7GM INHALER) INH PRN (17:27)
[2020-06-02] MEDS ORDERED: Chloraseptic Spray 180 ml Bottle PO PRN (17:28)
[2020-06-03 05:03] LABS: Anion Gap 11 mmol/L (10-20); BUN (Urea Nitrogen) 17 mg/dL (8.4-25.7); Calc. Creatinine Clearance 121 mL/min (70-130); Calcium 8.6 mg/dL (7.8-10.44); Carbon Dioxide 33 mmol/L (23-31); Chloride 101 mmol/L (98-107); Glucose 99 mg/dL (80-115); Sodium 141 mmol/L (136-145)
[2020-06-03] MEDS: Dofetilide 0.125 MG CAP PO SCH ×2 (05:16→17:30)
[2020-06-03] MEDS: Furosemide 40 MG/4 ML VIAL SLOW IVP SCH ×2 (05:17→15:34)
[2020-06-03] MEDS: Spironolactone 25 MG TAB PO SCH (09:38)
[2020-06-03] MEDS: Enoxaparin Sodium 120 MG/0.8 ML SYRINGE SC SCH ×2 (09:38→20:23)
[2020-06-03] MEDS: Multivit, Therapeutic 1 TAB PO SCH (09:38)
[2020-06-03] MEDS: Meclizine HCl 25 MG TAB PO SCH ×2 (09:39→09:41)
[2020-06-03] MEDS ORDERED: Regadenoson 0.4 MG/5 ML SYRINGE ONE (10:17)
[2020-06-03] MEDS ORDERED: Communication Order-Pharmacy FS SCH (15:15)
[2020-06-03] MEDS: Lisinopril 20 MG TAB PO SCH ×2 (16:04→20:25)
[2020-06-03] MEDS: Tamsulosin HCl 0.4 MG CAP PO SCH (16:04)
[2020-06-04] MEDS: Lisinopril 20 MG TAB PO SCH ×2 (05:13→21:08)
[2020-06-04] MEDS: Meclizine HCl 25 MG TAB PO SCH (05:16)
[2020-06-04] MEDS: Multivit, Therapeutic 1 TAB PO SCH (05:16)
[2020-06-04] MEDS: Spironolactone 25 MG TAB PO SCH (05:16)
[2020-06-04] MEDS: Dofetilide 0.125 MG CAP PO SCH (05:17)
[2020-06-04] MEDS: Enoxaparin Sodium 120 MG/0.8 ML SYRINGE SC SCH ×2 (07:41→21:11)
[2020-06-04] MEDS ORDERED: Lidocaine 1% (PF) 30 ML VIAL ONE (08:40)
[2020-06-04] MEDS ORDERED: Midazolam HCl 2 mg/2 ml Vial ONE (09:12)
[2020-06-04] MEDS ORDERED: Acetaminophen/Codeine 30-300mg Tablet PO PRN ×2 (09:44)
[2020-06-04] MEDS ORDERED: Nitroglycerin 0.4 MG TAB (25 Tab Bottle) SL PRN (09:44)
[2020-06-04] MEDS ORDERED: Sodium Chloride 0.9% 200 ML IV PRN (09:44)
[2020-06-04] MEDS ORDERED: Aspirin 81 mg Enteric Coated Tablet PO SCH (10:15)
[2020-06-04] MEDS: Tamsulosin HCl 0.4 MG CAP PO SCH (11:21)
[2020-06-04] MEDS ORDERED: Iopamidol 370 76% 100 ML VIAL ONE (11:37)
[2020-06-04] MEDS ORDERED: Nitroglycerin 2% Ointment 1 INCH/1 GM Packet ONE (13:18)
[2020-06-04] MEDS: Nitroglycerin 2% Ointment 1 INCH/1 GM Packet TOP SCH ×2 (13:26→22:39)
[2020-06-04] MEDS ORDERED: Diazepam 5 MG TAB PO PRN (15:25)
[2020-06-04] MEDS: Atorvastatin Calcium 40 MG TAB PO SCH (21:11)
[2020-06-05] MEDS: Nitroglycerin 2% Ointment 1 INCH/1 GM Packet TOP SCH ×4 (03:35→22:28)
[2020-06-05 05:25] LABS: Anion Gap 11 mmol/L (10-20); BUN (Urea Nitrogen) 14 mg/dL (8.4-25.7); Calc. Creatinine Clearance 152 mL/min (70-130); Calcium 8.4 mg/dL (7.8-10.44); Carbon Dioxide 29 mmol/L (23-31); Chloride 105 mmol/L (98-107); Glucose 89 mg/dL (80-115); Potassium 3.8 mmol/L (3.5-5.1); Sodium 141 mmol/L (136-145)
[2020-06-05] MEDS: Aspirin 81 mg Enteric Coated Tablet PO SCH (09:18)
[2020-06-05] MEDS: Meclizine HCl 25 MG TAB PO SCH (09:19)
[2020-06-05] MEDS: Lisinopril 20 MG TAB PO SCH ×2 (09:19→22:13)
[2020-06-05] MEDS: Enoxaparin Sodium 120 MG/0.8 ML SYRINGE SC SCH ×2 (09:20→22:14)
[2020-06-05] MEDS: Multivit, Therapeutic 1 TAB PO SCH (09:21)
[2020-06-05] MEDS: Spironolactone 25 MG TAB PO SCH (09:21)
[2020-06-05] MEDS: Tamsulosin HCl 0.4 MG CAP PO SCH (11:49)
[2020-06-05] MEDS ORDERED: Sodium Chloride 0.9% 10 ML ONE (21:41)
[2020-06-05] MEDS: Atorvastatin Calcium 40 MG TAB PO SCH (22:12)
[2020-06-06] MEDS: Nitroglycerin 2% Ointment 1 INCH/1 GM Packet TOP SCH ×4 (02:30→20:44)
[2020-06-06] MEDS: Meclizine HCl 25 MG TAB PO SCH (08:58)
[2020-06-06] MEDS: Enoxaparin Sodium 120 MG/0.8 ML SYRINGE SC SCH ×2 (08:59→20:39)
[2020-06-06] MEDS: Aspirin 81 mg Enteric Coated Tablet PO SCH (08:59)
[2020-06-06] MEDS: Lisinopril 20 MG TAB PO SCH ×2 (09:00→20:39)
[2020-06-06] MEDS: Spironolactone 25 MG TAB PO SCH (09:01)
[2020-06-06] MEDS: Multivit, Therapeutic 1 TAB PO SCH (09:01)
[2020-06-06] MEDS: Tamsulosin HCl 0.4 MG CAP PO SCH (12:25)
[2020-06-06] MEDS: Atorvastatin Calcium 40 MG TAB PO SCH (20:40)
[2020-06-07] MEDS: Nitroglycerin 2% Ointment 1 INCH/1 GM Packet TOP SCH ×2 (02:01→11:39)
[2020-06-07] MEDS ORDERED: Communication Order-Pharmacy FS SCH (06:00)
[2020-06-07] MEDS ORDERED: Vancomycin 1.5 GRAM/300 ML BAG 1.5 GM in Premix Bag 1 BAG IVPB SCH (06:30)
[2020-06-07] MEDS ORDERED: Bupivacaine PF 0.5% 30 ML VIAL ONE (06:33)
[2020-06-07] MEDS ORDERED: Albumin 5% 500 ML ONE ×2 (06:33→07:20)
[2020-06-07] MEDS ORDERED: Dexamethasone 4 mg/ml Vial ONE (06:33)
[2020-06-07] MEDS ORDERED: EPINEPHrine 1 MG/ML AMP ONE (06:33)
[2020-06-07] MEDS ORDERED: Phenylephrine 10 MG/ML VIAL ONE (06:38)
[2020-06-07] MEDS ORDERED: Midazolam HCl 2 mg/2 ml Vial ONE (06:38)
[2020-06-07] MEDS ORDERED: Fentanyl 250 MCG/5 ML VIAL ONE (06:38)
[2020-06-07] MEDS ORDERED: Dexmedetomidine 200 MCG/2 ML VIAL ONE (06:38)
[2020-06-07] MEDS ORDERED: Heparin 10,000 UNITS/1 ML VIAL 30,000 UNITS in Sodium Chloride 0.9% 1,000 ML FS SCH (06:45)
[2020-06-07] MEDS ORDERED: CEFAZOLIN 2 GM in Premix Bag 1 BAG IVPB SCH (07:30)
[2020-06-07] MEDS ORDERED: PHENYLEPHRINE-NS 100 MCG/ML 10 ML SYRINGE ONE (08:35)
[2020-06-07] MEDS ORDERED: Nitroglycerin 50 MG/250 ML BOT ONE (10:06)
[2020-06-07] MEDS ORDERED: Magnesium Sulfate 1 GM/2 ML VIAL ONE (10:06)
[2020-06-07] MEDS ORDERED: Protamine Sulfate 250 MG/25 ML VIAL ONE (10:06)
[2020-06-07] MEDS ORDERED: Ketorolac Tromethamine 30 MG/ML VIAL ONE (10:06)
[2020-06-07] MEDS ORDERED: Potassium Chloride 60 MEQ/30 ML VIAL ONE (10:06)
[2020-06-07] MEDS ORDERED: Heparin 30,000 units/30 ml VIAL ONE (10:06)
[2020-06-07] MEDS ORDERED: Sodium Bicarb 50 MEQ/50 ML Abboject 8.4% SYRINGE ONE (10:06)
[2020-06-07] MEDS ORDERED: PROPOFOL 200 MG/20 ML VIAL ONE (10:06)
[2020-06-07] MEDS ORDERED: Norepinephrine 4 MG/4 ML VIAL ONE (10:06)
[2020-06-07] MEDS ORDERED: Calcium Chloride 1 GM/10 ML Abboject SYRINGE ONE (10:06)
[2020-06-07] MEDS ORDERED: Ondansetron PF 4 MG/2 ML Vial ONE (10:06)
[2020-06-07] MEDS ORDERED: Mannitol 12.5 GM/50 ML ONE (10:06)
[2020-06-07] MEDS ORDERED: Aminocaproic Acid 5 GM/20 ML VIAL ONE (10:06)
[2020-06-07] MEDS ORDERED: Heparin 5,000 UNITS/ML VIAL ONE (10:06)
[2020-06-07] MEDS ORDERED: Lidocaine 2% PF 100 mg/5 ml Syringe ONE (10:06)
[2020-06-07] MEDS ORDERED: Glycopyrrolate 0.2 MG/ML 5 ML SYRINGE ONE (10:06)
[2020-06-07] MEDS ORDERED: Esmolol 100 MG/10 ML VIAL ONE (10:06)
[2020-06-07] MEDS ORDERED: Vecuronium 10 MG VIAL ONE (10:06)
[2020-06-07] MEDS ORDERED: Thrombin 5000 UNITS/5 ML VIAL ONE (10:06)
[2020-06-07] MEDS ORDERED: Papaverine 60 MG/2 ML VIAL ONE (10:06)
[2020-06-07] MEDS ORDERED: Cardioplegic Soln 1,000 ML BAG ONE (10:06)
[2020-06-07] MEDS ORDERED: Rocuronium Bromide 10 MG/ML (10ML VIAL) ONE (10:06)
[2020-06-07] MEDS: Lisinopril 20 MG TAB PO SCH (11:39)
[2020-06-07] MEDS ORDERED: Promethazine HCl 25 MG/ML VIAL IM PRN (13:06)
[2020-06-07] MEDS ORDERED: Fentanyl 100 MCG/2 ML VIAL SLOW IVP PRN ×2 (13:06)
[2020-06-07] MEDS ORDERED: Norepinephrine 8 MG/0.9% NS 250 ML IVPB PRN (13:06)
[2020-06-07] MEDS ORDERED: Guaifenesin DM 100-10/5 ML UDCUP PO PRN (13:06)
[2020-06-07] MEDS ORDERED: Magnesium 2 GM/50 ML 2 GM in Premix Bag 1 BAG IVPB SCH (13:06)
[2020-06-07] MEDS ORDERED: hydrALAZINE 20 MG/ML VIAL SLOW IVP PRN (13:06)
[2020-06-07] MEDS ORDERED: Ondansetron PF 4 MG/2 ML Vial IVP PRN (13:06)
[2020-06-07] MEDS ORDERED: Bisacodyl 10 MG SUPP PR PRN (13:06)
[2020-06-07] MEDS ORDERED: Bisacodyl 5 MG TAB PO PRN (13:06)
[2020-06-07] MEDS ORDERED: traMADol HCl 50 MG TAB PO PRN (13:06)
[2020-06-07] MEDS ORDERED: Morphine 2 MG/ML VIAL SLOW IVP PRN (13:06)
[2020-06-07] MEDS ORDERED: Mag-Al 1200 mg/1200 mg/30 ML UDCUP PO PRN (13:06)
[2020-06-07] MEDS ORDERED: Hetastarch 6% 500 ML 500 ML IVPB PRN (13:06)
[2020-06-07] MEDS ORDERED: Acetaminophen 325 MG TAB PO PRN (13:06)
[2020-06-07] MEDS ORDERED: Nitroglycerin 50 MG/250 ML BOT 250 ML IVPB PRN (13:06)
[2020-06-07] MEDS ORDERED: Potassium Chloride 20 MEQ/100 ML PREMIX BAG IVPB PRN (13:06)
[2020-06-07] MEDS ORDERED: Nitroglycerin 50 MG/250 ML BOT 250 ML ONE (13:29)
[2020-06-07 13:31] LABS: #Eosinphils 0.1 thou/uL (0.0-0.7); #Lymphocytes 2.1 thou/uL (1.20-3.40); #Monocytes 1.2 thou/uL (0.11-0.59); #Neutrophils 14.5 thou/uL (1.40-6.50); %Eosinophils 0.5 % (0.0-10.0); %Lymphocytes 11.9 % (21.0-51.0); %Monocytes 6.7 % (0.0-10.0); %Neutrophils 80.9 % (42.0-75.0); Hemoglobin 12.3 g/dL (14.0-18.0); Mean Corpuscular HGB CONC 33.2 g/dL (32.0-36.0); Mean Corpuscular Hemoglobin 31.5 pg (27.0-31.0); Mean Corpuscular Volume 94.9 fL (78.0-98.0); Mean Platelet Volume 7.6 fL (7.4-10.4); Platelet Count 143 thou/uL (130-400); RBC Distribution Width 12.6 % (11.5-14.5); Red Blood Cell (RBC) Count 3.91 mill/uL (4.70-6.10); White Blood Cell (WBC) Count 17.9 thou/uL (4.8-10.8)
[2020-06-07 13:35] LABS: Actual Bicarbonate (HCO3a) 21.6 mEq/L (22-28); Base Excess (BEa) -3.7 mEq/L (-2.0 to +3.0); CO2 Tension 39.9 mmHg (35.0-45.0); Carboxyhemoglobin (COHb) 0.7 gm% (0.0-3.0); Hemoglobin (Hb) 13.1 g/dL (14.0-18.0); O2 Tension (PaO2), arterial 72.4 mmHg (> 80.0); Potassium - ABG Lab 4.68 mmol/L (3.70-5.30); pH, Arterial 7.35 (7.35-7.45)
[2020-06-07 13:36] LABS: ALV-art Gradient 305.525 mmHg (0-20); Puncture Site Arterial Line
[2020-06-07 13:37] LABS: INR-International Normal Ratio 1.4; Prothrombin Time 17.1 sec (12.0-14.7)
[2020-06-07 13:38] LABS: PTT 38.2 sec (22.9-36.1)
[2020-06-07] MEDS ORDERED: Dextrose 5% in Water 1,000 ML IV PRN (13:45)
[2020-06-07] MEDS ORDERED: Dextrose 50% Abboject 50 ML SYRINGE SLOW IVP PRN (13:45)
[2020-06-07] MEDS: D5 1/2 NS w/20 mEq KCL 1,000 ML IV SCH (13:46)
[2020-06-07] MEDS: Insulin Regular 300 UNITS/3 ML VIAL SC PRN ×3 (13:57→19:59)
[2020-06-07 13:59] LABS: Anion Gap 15 mmol/L (10-20); BUN (Urea Nitrogen) 14 mg/dL (8.4-25.7); Calc. Creatinine Clearance 131 mL/min (70-130); Calcium 7.8 mg/dL (7.8-10.44); Carbon Dioxide 21 mmol/L (23-31); Chloride 111 mmol/L (98-107); Glucose 130 mg/dL (80-115); Potassium 4.7 mmol/L (3.5-5.1); Sodium 142 mmol/L (136-145)
[2020-06-07] MEDS: CEFAZOLIN 2 GM in Premix Bag 1 BAG IVPB SCH ×2 (14:59→21:58)
[2020-06-07 16:46] LABS: Actual Bicarbonate (HCO3a) 21.6 mEq/L (22-28); Base Excess (BEa) -3.2 mEq/L (-2.0 to +3.0); Calcium, Ionized (arterial) 1.11 mmol/L (1.12-1.30); Carboxyhemoglobin (COHb) 0.9 gm% (0.0-3.0); Hemoglobin (Hb) 12.6 g/dL (14.0-18.0); O2 Tension (PaO2), arterial 67.2 mmHg (> 80.0); Potassium - ABG Lab 4.43 mmol/L (3.70-5.30); pH, Arterial 7.37 (7.35-7.45)
[2020-06-07 16:52] LABS: Puncture Site Arterial Line
[2020-06-07] MEDS: Vancomycin 1.5 GRAM/300 ML BAG 1.5 GM in Premix Bag 1 BAG IVPB SCH (17:46)
[2020-06-07] MEDS: Ketorolac Tromethamine 30 MG/ML VIAL IVP SCH (17:47)
[2020-06-07 19:14] LABS: Hemoglobin 11.3 g/dL (14.0-18.0)
[2020-06-07 19:26] LABS: Potassium 4.7 mmol/L (3.5-5.1)
[2020-06-07] MEDS ORDERED: Famotidine/PF 20 mg/2ml Vial SLOW IVP SCH (21:00)
[2020-06-08] MEDS: Ketorolac Tromethamine 30 MG/ML VIAL IVP SCH ×4 (00:04→17:21)
[2020-06-08] MEDS: Insulin Regular 300 UNITS/3 ML VIAL SC PRN (00:13)
[2020-06-08 04:39] LABS: #Lymphocytes 1.1 thou/uL (1.20-3.40); #Monocytes 1.1 thou/uL (0.11-0.59); #Neutrophils 10.1 thou/uL (1.40-6.50); %Eosinophils 0.1 % (0.0-10.0); %Monocytes 8.7 % (0.0-10.0); %Neutrophils 82.1 % (42.0-75.0); Hemoglobin 10.3 g/dL (14.0-18.0); Mean Corpuscular HGB CONC 32.5 g/dL (32.0-36.0); Mean Corpuscular Hemoglobin 30.7 pg (27.0-31.0); Mean Corpuscular Volume 94.6 fL (78.0-98.0); Mean Platelet Volume 8.2 fL (7.4-10.4); Platelet Count 139 thou/uL (130-400); RBC Distribution Width 12.7 % (11.5-14.5); Red Blood Cell (RBC) Count 3.35 mill/uL (4.70-6.10); White Blood Cell (WBC) Count 12.3 thou/uL (4.8-10.8)
[2020-06-08 04:52] LABS: Anion Gap 9 mmol/L (10-20); BUN (Urea Nitrogen) 18 mg/dL (8.4-25.7); Calc. Creatinine Clearance 136 mL/min (70-130); Calcium 7.7 mg/dL (7.8-10.44); Carbon Dioxide 26 mmol/L (23-31); Chloride 109 mmol/L (98-107); Glucose 127 mg/dL (80-115); Potassium 4.6 mmol/L (3.5-5.1); Sodium 139 mmol/L (136-145)
[2020-06-08] MEDS: CEFAZOLIN 2 GM in Premix Bag 1 BAG IVPB SCH (05:27)
[2020-06-08] MEDS: Vancomycin 1.5 GRAM/300 ML BAG 1.5 GM in Premix Bag 1 BAG IVPB SCH (06:36)
[2020-06-08] MEDS: Magnesium 2 GM/50 ML 2 GM in Premix Bag 1 BAG IVPB SCH (08:46)
[2020-06-08] MEDS: Meclizine HCl 25 MG TAB PO SCH (08:47)
[2020-06-08] MEDS: Spironolactone 25 MG TAB PO SCH (08:47)
[2020-06-08] MEDS: Tamsulosin HCl 0.4 MG CAP PO SCH (08:47)
[2020-06-08] MEDS: Aspirin 325 MG TAB PO SCH (08:47)
[2020-06-08] MEDS: D5 1/2 NS w/20 mEq KCL 1,000 ML IV SCH (14:38)
[2020-06-08] MEDS: traMADol HCl 50 MG TAB PO PRN (17:35)
[2020-06-08] MEDS: Atorvastatin Calcium 40 MG TAB PO SCH (20:34)
[2020-06-09] MEDS: Ketorolac Tromethamine 30 MG/ML VIAL IVP SCH ×5 (00:10→22:08)
[2020-06-09 04:49] LABS: #Eosinphils 0.2 thou/uL (0.0-0.7); #Monocytes 1.2 thou/uL (0.11-0.59); #Neutrophils 8.8 thou/uL (1.40-6.50); %Basophils 0.2 % (0.0-1.0); %Eosinophils 1.6 % (0.0-10.0); %Lymphocytes 16.3 % (21.0-51.0); %Monocytes 9.6 % (0.0-10.0); %Neutrophils 72.3 % (42.0-75.0); Hemoglobin 9.9 g/dL (14.0-18.0); Mean Corpuscular Hemoglobin 30.8 pg (27.0-31.0); Mean Corpuscular Volume 96.3 fL (78.0-98.0); Mean Platelet Volume 8.3 fL (7.4-10.4); Platelet Count 132 thou/uL (130-400); RBC Distribution Width 12.7 % (11.5-14.5); White Blood Cell (WBC) Count 12.2 thou/uL (4.8-10.8)
[2020-06-09 05:22] LABS: Anion Gap 10 mmol/L (10-20); BUN (Urea Nitrogen) 26 mg/dL (8.4-25.7); Calc. Creatinine Clearance 136 mL/min (70-130); Carbon Dioxide 25 mmol/L (23-31); Chloride 105 mmol/L (98-107); Glucose 105 mg/dL (80-115); Sodium 136 mmol/L (136-145)
[2020-06-09] MEDS ORDERED: Nitroglycerin 0.4 MG TAB (25 Tab Bottle) SL PRN (07:28)
[2020-06-09] MEDS ORDERED: Guaifenesin DM 100-10/5 ML UDCUP PO PRN (07:28)
[2020-06-09] MEDS ORDERED: Bisacodyl 10 MG SUPP PR PRN (07:28)
[2020-06-09] MEDS ORDERED: Mineral Oil ENEMA PR PRN (07:28)
[2020-06-09] MEDS ORDERED: diphenhydrAMINE 25 MG CAP PO PRN (07:28)
[2020-06-09] MEDS ORDERED: Zolpidem Tartrate 5 MG TAB PO PRN (07:28)
[2020-06-09] MEDS ORDERED: Bisacodyl 5 MG TAB PO PRN (07:28)
[2020-06-09] MEDS ORDERED: Mag-Al 1200 mg/1200 mg/30 ML UDCUP PO PRN (07:28)
[2020-06-09] MEDS: Tamsulosin HCl 0.4 MG CAP PO SCH (08:32)
[2020-06-09] MEDS: Aspirin 325 MG TAB PO SCH (08:32)
[2020-06-09] MEDS: Magnesium 2 GM/50 ML 2 GM in Premix Bag 1 BAG IVPB SCH (08:32)
[2020-06-09] MEDS: Metoprolol Tartrate 25 MG TAB PO SCH ×2 (08:33→20:09)
[2020-06-09] MEDS: Meclizine HCl 25 MG TAB PO SCH (08:33)
[2020-06-09] MEDS: Furosemide 40 MG TAB PO SCH ×2 (08:34→21:58)
[2020-06-09] MEDS: Spironolactone 25 MG TAB PO SCH (10:11)
[2020-06-09] MEDS: traMADol HCl 50 MG TAB PO PRN (20:07)
[2020-06-09] MEDS: Atorvastatin Calcium 40 MG TAB PO SCH (20:09)
[2020-06-10] MEDS: Ketorolac Tromethamine 30 MG/ML VIAL IVP SCH ×5 (04:04→23:12)
[2020-06-10] MEDS ORDERED: Magnesium Citrate 300 ML BOT PO PRN (06:00)
[2020-06-10] MEDS: Furosemide 40 MG TAB PO SCH ×2 (06:05→15:03)
[2020-06-10] MEDS: Potassium Chloride 10 MEQ TAB PO SCH ×2 (08:28→17:43)
[2020-06-10] MEDS: Meclizine HCl 25 MG TAB PO SCH (08:28)
[2020-06-10] MEDS: Aspirin 325 MG TAB PO SCH (08:28)
[2020-06-10] MEDS: Metoprolol Tartrate 25 MG TAB PO SCH ×2 (08:29→21:53)
[2020-06-10] MEDS: Spironolactone 25 MG TAB PO SCH (08:29)
[2020-06-10] MEDS: Tamsulosin HCl 0.4 MG CAP PO SCH (08:32)
[2020-06-10] MEDS: Atorvastatin Calcium 40 MG TAB PO SCH (21:53)
[2020-06-11] MEDS: Ketorolac Tromethamine 30 MG/ML VIAL IVP SCH ×2 (05:43→12:44)
[2020-06-11] MEDS: Furosemide 40 MG TAB PO SCH ×2 (05:43→15:04)
[2020-06-11 06:06] VITALS: BMI 35.8
[2020-06-11] MEDS: Aspirin 325 MG TAB PO SCH (08:17)
[2020-06-11] MEDS: Spironolactone 25 MG TAB PO SCH (08:17)
[2020-06-11] MEDS: Tamsulosin HCl 0.4 MG CAP PO SCH (08:17)
[2020-06-11] MEDS: Potassium Chloride 10 MEQ TAB PO SCH (08:17)
[2020-06-11] MEDS: Meclizine HCl 25 MG TAB PO SCH (08:17)
[2020-06-11] MEDS: Metoprolol Tartrate 25 MG TAB PO SCH (08:19)
[2020-06-11 08:43] LABS: Hemoglobin 10.3 g/dL (14.0-18.0)
[2020-06-11 09:00] LABS: Anion Gap 15 mmol/L (10-20); BUN (Urea Nitrogen) 30 mg/dL (8.4-25.7); Calc. Creatinine Clearance 130 mL/min (70-130); Calcium 8.4 mg/dL (7.8-10.44); Carbon Dioxide 23 mmol/L (23-31); Chloride 101 mmol/L (98-107); Glucose 116 mg/dL (80-115); Potassium 4.5 mmol/L (3.5-5.1); Sodium 134 mmol/L (136-145)
[2020-06-11 11:18] VITALS: BP 119/64; TEMP 98
== END 2020-06-11 15:00 | disposition home or self-care (01) | DRG 217 ==
LOC: CCL 06:15 → CCU 08:25 → 2NO 06-02 18:03 → CCU 06-07 06:18 → 2NO 06-10 12:57
PROVIDERS: ADMIT Internal Medicine Cardiovascular Disease; ATTEND Internal Medicine Cardiovascular Disease
PROC: 4A023N7 Measurement of Cardiac Sampling and Pressure, Left Heart, Percutaneous Approach (ICD-10-PCS; 2020-06-01)
PROC: B2151ZZ Fluoroscopy of Left Heart using Low Osmolar Contrast (ICD-10-PCS; 2020-06-01)
PROC: B2111ZZ Fluoroscopy of Multiple Coronary Arteries using Low Osmolar Contrast (ICD-10-PCS; 2020-06-01)
PROC: 5A2204Z Restoration of Cardiac Rhythm, Single (ICD-10-PCS; 2020-06-02)
PROC: B24BZZ4 Ultrasonography of Heart with Aorta, Transesophageal (ICD-10-PCS; 2020-06-02)
PROC: 02RF08Z Replacement of Aortic Valve with Zooplastic Tissue, Open Approach (ICD-10-PCS; principal; 2020-06-07)
PROC: 021209W Bypass Coronary Artery, Three Arteries from Aorta with Autologous Venous Tissue, Open Approach (ICD-10-PCS; 2020-06-07)
PROC: 02100Z9 Bypass Coronary Artery, One Artery from Left Internal Mammary, Open Approach (ICD-10-PCS; 2020-06-07)
PROC: 06BQ4ZZ Excision of Left Saphenous Vein, Percutaneous Endoscopic Approach (ICD-10-PCS; 2020-06-07)
PROC: 02580ZZ Destruction of Conduction Mechanism, Open Approach (ICD-10-PCS; 2020-06-07)
PROC: B24BZZ4 Ultrasonography of Heart with Aorta, Transesophageal (ICD-10-PCS; 2020-06-07)
PROC: 5A1221Z Performance of Cardiac Output, Continuous (ICD-10-PCS; 2020-06-07)
PROC: 02L70ZK Occlusion of Left Atrial Appendage, Open Approach (ICD-10-PCS; 2020-06-07)
DX: I35.0 Nonrheumatic aortic (valve) stenosis (principal); I50.32 Chronic diastolic (congestive) heart failure; I16.9 Hypertensive crisis, unspecified; I42.0 Dilated cardiomyopathy; I48.19 Other persistent atrial fibrillation; I48.92 Unspecified atrial flutter; I48.0 Paroxysmal atrial fibrillation; I25.10 Atherosclerotic heart disease of native coronary artery without angina pectoris; I11.0 Hypertensive heart disease with heart failure; E66.01 Morbid (severe) obesity due to excess calories; N40.0 Benign prostatic hyperplasia without lower urinary tract symptoms; E78.5 Hyperlipidemia, unspecified; Z68.35 Body mass index [BMI] 35.0-35.9, adult; Z79.01 Long term (current) use of anticoagulants
CPT/HCPCS: 36415; 36416; 71045; 78452; 80048; 80061; 82805; 85014; 85018; 85025; 85610; 85730; 86850; 86900; 86901; 93005; 93010; 93017; 93306; 93312; 93454; 93458; 93798; 94002; 94150; 97139; 99152; A9500; J0171; J0360; J0690; J1100; J1160; J1642; J1644; J1650; J1815; J1885; J1940; J2001; J2150; J2250; J2270; J2370; J2405; J2440; J2704; J2720; J2785; J3010; J3370; J3475; J3480; J8499; P9045; Q9967; S0017; S0020; S0028

== ENCOUNTER 2020-06-22 17:23 | Observation (INO) | payer MEDICARE ==
[2020-06-22 19:17] LABS: #Basophils 0.1 thou/uL (0.0-0.2); #Eosinphils 0.2 thou/uL (0.0-0.7); #Lymphocytes 2.3 thou/uL (1.20-3.40); #Monocytes 0.8 thou/uL (0.11-0.59); #Neutrophils 5.8 thou/uL (1.40-6.50); %Basophils 0.7 % (0.0-1.0); %Eosinophils 1.9 % (0.0-10.0); %Neutrophils 63.4 % (42.0-75.0); Hemoglobin 11.5 g/dL (14.0-18.0); Mean Corpuscular HGB CONC 33.4 g/dL (32.0-36.0); Mean Corpuscular Hemoglobin 31.1 pg (27.0-31.0); Mean Corpuscular Volume 93.1 fL (78.0-98.0); Mean Platelet Volume 6.9 fL (7.4-10.4); Platelet Count 355 thou/uL (130-400); RBC Distribution Width 12.8 % (11.5-14.5); White Blood Cell (WBC) Count 9.1 thou/uL (4.8-10.8)
[2020-06-22 19:45] LABS: ALT (SGPT) 32 U/L (8-55); AST (SGOT) 31 U/L (5-34); Albumin 3.5 g/dL (3.4-4.8); Alkaline Phosphatase 144 U/L (40-110); Anion Gap 18 mmol/L (10-20); BUN (Urea Nitrogen) 23 mg/dL (8.4-25.7); Bilirubin, Total 0.7 mg/dL (0.2-1.2); Calc. Creatinine Clearance 0 mL/min (70-130); Calcium 8.6 mg/dL (7.8-10.44); Carbon Dioxide 25 mmol/L (23-31); Chloride 100 mmol/L (98-107); Globulin 3.2 g/dL (2.4-3.5); Glucose 101 mg/dL (80-115); Potassium 4.5 mmol/L (3.5-5.1); Protein, Total 6.7 g/dL (5.8-8.1); Sodium 138 mmol/L (136-145)
[2020-06-22 20:07] LABS: CKMB 0.8 ng/mL (0-6.6)
[2020-06-22] MEDS ORDERED: Bisacodyl 5 MG TAB PO PRN (21:54)
[2020-06-22] MEDS ORDERED: Calcium Carbonate 500 MG ChewTAB PO PRN (21:54)
[2020-06-22] MEDS ORDERED: Acetaminophen 325 MG TAB PO PRN (21:54)
[2020-06-22] MEDS ORDERED: Ondansetron ODT 4 MG TAB PO PRN (21:54)
[2020-06-22] MEDS ORDERED: Senokot S 8.6-50 MG TAB PO PRN (21:54)
[2020-06-22 22:29] LABS: Troponin I 0.042 ng/mL (< 0.028)
[2020-06-23 01:16] VITALS: BMI 32.5
[2020-06-23 01:41] LABS: Troponin I 0.047 ng/mL (< 0.028)
[2020-06-23] MEDS ORDERED: traMADol HCl 50 MG TAB PO PRN (02:18)
[2020-06-23] MEDS ORDERED: Albuterol Sulfate 2.5 mg/3 ml Neb NEB PRN (02:30)
[2020-06-23] MEDS: Furosemide 40 MG TAB PO SCH ×2 (04:43→15:20)
[2020-06-23 05:41] LABS: #Basophils 0.1 thou/uL (0.0-0.2); #Eosinphils 0.3 thou/uL (0.0-0.7); #Lymphocytes 2.4 thou/uL (1.20-3.40); #Monocytes 0.8 thou/uL (0.11-0.59); %Basophils 0.9 % (0.0-1.0); %Eosinophils 3.2 % (0.0-10.0); %Lymphocytes 27.8 % (21.0-51.0); %Monocytes 9.6 % (0.0-10.0); %Neutrophils 58.5 % (42.0-75.0); Hemoglobin 10.8 g/dL (14.0-18.0); Mean Corpuscular HGB CONC 33.1 g/dL (32.0-36.0); Mean Corpuscular Hemoglobin 30.7 pg (27.0-31.0); Mean Corpuscular Volume 92.8 fL (78.0-98.0); Mean Platelet Volume 7.1 fL (7.4-10.4); Platelet Count 353 thou/uL (130-400); RBC Distribution Width 12.8 % (11.5-14.5); Red Blood Cell (RBC) Count 3.51 mill/uL (4.70-6.10); White Blood Cell (WBC) Count 8.6 thou/uL (4.8-10.8)
[2020-06-23 05:57] LABS: ALT (SGPT) 26 U/L (8-55); AST (SGOT) 27 U/L (5-34); Albumin 3.2 g/dL (3.4-4.8); Alkaline Phosphatase 124 U/L (40-110); Anion Gap 13 mmol/L (10-20); BUN (Urea Nitrogen) 22 mg/dL (8.4-25.7); Bilirubin, Total 0.6 mg/dL (0.2-1.2); Calc. Creatinine Clearance 96 mL/min (70-130); Calcium 8.7 mg/dL (7.8-10.44); Carbon Dioxide 28 mmol/L (23-31); Chloride 102 mmol/L (98-107); Globulin 3.4 g/dL (2.4-3.5); Glucose 113 mg/dL (80-115); Protein, Total 6.6 g/dL (5.8-8.1); Sodium 139 mmol/L (136-145)
[2020-06-23] MEDS ORDERED: Spironolactone 25 MG TAB PO SCH (08:00)
[2020-06-23] MEDS: Potassium Chloride 10 MEQ TAB PO SCH ×2 (08:49→17:16)
[2020-06-23] MEDS: Apixaban 5 MG TAB PO SCH ×2 (08:49→21:52)
[2020-06-23] MEDS: Multivit, Therapeutic 1 TAB PO SCH (08:49)
[2020-06-23] MEDS: Aspirin 325 MG TAB PO SCH (08:49)
[2020-06-23] MEDS: Polyethylene Glycol 3350 17 GM Packet PO SCH (08:51)
[2020-06-23] MEDS: Bisacodyl 5 MG TAB PO SCH (08:51)
[2020-06-23] MEDS: Senokot S 8.6-50 MG TAB PO SCH (08:52)
[2020-06-23] MEDS ORDERED: Tamsulosin HCl 0.4 MG CAP PO SCH ×2 (09:00→21:00)
[2020-06-23 11:28] LABS: Phosphorus 4.3 mg/dL (2.3-4.7)
[2020-06-23] MEDS ORDERED: Atorvastatin Calcium 40 MG TAB PO SCH (21:00)
[2020-06-23] MEDS: Amiodarone 200 MG TAB PO SCH (21:52)
[2020-06-24] MEDS: Senokot S 8.6-50 MG TAB PO SCH ×2 (00:56→10:01)
[2020-06-24] MEDS: Furosemide 40 MG TAB PO SCH ×2 (06:14→15:04)
[2020-06-24 06:30] LABS: #Basophils 0.1 thou/uL (0.0-0.2); #Eosinphils 0.3 thou/uL (0.0-0.7); #Monocytes 0.7 thou/uL (0.11-0.59); #Neutrophils 4.4 thou/uL (1.40-6.50); %Eosinophils 3.7 % (0.0-10.0); %Lymphocytes 26.5 % (21.0-51.0); %Monocytes 9.7 % (0.0-10.0); %Neutrophils 59.2 % (42.0-75.0); Hemoglobin 11.4 g/dL (14.0-18.0); Mean Corpuscular Hemoglobin 31.9 pg (27.0-31.0); Mean Corpuscular Volume 93.8 fL (78.0-98.0); Mean Platelet Volume 7.3 fL (7.4-10.4); Platelet Count 309 thou/uL (130-400); RBC Distribution Width 12.8 % (11.5-14.5); Red Blood Cell (RBC) Count 3.58 mill/uL (4.70-6.10); White Blood Cell (WBC) Count 7.5 thou/uL (4.8-10.8)
[2020-06-24 06:46] LABS: Anion Gap 13 mmol/L (10-20); BUN (Urea Nitrogen) 22 mg/dL (8.4-25.7); Calc. Creatinine Clearance 99 mL/min (70-130); Calcium 8.9 mg/dL (7.8-10.44); Carbon Dioxide 28 mmol/L (23-31); Chloride 102 mmol/L (98-107); Glucose 97 mg/dL (80-115); Magnesium 2.1 mg/dL (1.6-2.6); Potassium 4.3 mmol/L (3.5-5.1); Sodium 139 mmol/L (136-145)
[2020-06-24] MEDS: Potassium Chloride 10 MEQ TAB PO SCH (09:55)
[2020-06-24] MEDS: Amiodarone 200 MG TAB PO SCH (09:56)
[2020-06-24] MEDS: Multivit, Therapeutic 1 TAB PO SCH (09:56)
[2020-06-24] MEDS: Aspirin 325 MG TAB PO SCH (09:56)
[2020-06-24] MEDS: Apixaban 5 MG TAB PO SCH (09:56)
[2020-06-24] MEDS: Polyethylene Glycol 3350 17 GM Packet PO SCH (10:01)
[2020-06-24] MEDS: Bisacodyl 5 MG TAB PO SCH (10:01)
[2020-06-24 16:43] VITALS: BP 111/67; TEMP 98.5
== END 2020-06-24 16:18 | disposition home or self-care (01) ==
LOC: ERS 17:23 → 2SW 21:25
PROVIDERS: ADMIT Family Medicine; ATTEND Internal Medicine
DX: I48.19 Other persistent atrial fibrillation (principal); I95.9 Hypotension, unspecified; I25.10 Atherosclerotic heart disease of native coronary artery without angina pectoris; I11.0 Hypertensive heart disease with heart failure; I50.33 Acute on chronic diastolic (congestive) heart failure; K59.00 Constipation, unspecified; I08.3 Combined rheumatic disorders of mitral, aortic and tricuspid valves; N40.0 Benign prostatic hyperplasia without lower urinary tract symptoms; E66.9 Obesity, unspecified; Z68.32 Body mass index [BMI] 32.0-32.9, adult; Z86.16 Personal history of COVID-19; Z79.01 Long term (current) use of anticoagulants; Z79.82 Long term (current) use of aspirin; Z79.899 Other long term (current) drug therapy; Z95.1 Presence of aortocoronary bypass graft; Z95.2 Presence of prosthetic heart valve
CPT/HCPCS: 71045; 80048; 80053 ×2; 82553; 83735 ×2; 83880; 84100; 84484 ×3; 85025 ×3; 93005; 93798; 96374; 97139 ×4; 99285; G0378 ×3; 36415

== ENCOUNTER 2020-07-12 09:17 | Day surgery (SDC) | payer MEDICARE ==
[2020-07-08 13:21] VITALS: BMI 32.7
[2020-07-12] MEDS ORDERED: PROPOFOL 200 MG/20 ML VIAL ONE (11:52)
== END 2020-07-12 12:58 | disposition home or self-care (01) ==
LOC: CCL 09:17
PROVIDERS: ATTEND Internal Medicine Cardiovascular Disease
DX: I48.0 Paroxysmal atrial fibrillation (principal); I08.1 Rheumatic disorders of both mitral and tricuspid valves; I11.0 Hypertensive heart disease with heart failure; I50.42 Chronic combined systolic (congestive) and diastolic (congestive) heart failure; E66.01 Morbid (severe) obesity due to excess calories; Z68.32 Body mass index [BMI] 32.0-32.9, adult; Z79.899 Other long term (current) drug therapy; Z95.2 Presence of prosthetic heart valve; Z86.16 Personal history of COVID-19
CPT/HCPCS: 92960; 93005; 93010; 93312; J2704

== ENCOUNTER 2023-05-15 19:45 | Inpatient (IN) | payer MEDICARE ==
[2023-05-15] MEDS ORDERED: Metoprolol Tartrate 5 MG (5 mL) VIAL ONE (20:09)
[2023-05-15 20:36] LABS: #Monocytes 0.5 thou/uL (0.11-0.59); #Neutrophils 6.6 thou/uL (1.40-6.50); %Basophils 0.2 % (0.0-1.0); %Eosinophils 0.2 % (0.0-10.0); %Lymphocytes 11.2 % (21.0-51.0); %Monocytes 6.2 % (0.0-10.0); Hemoglobin 13.4 g/dL (14.0-18.0); Mean Corpuscular HGB CONC 33.5 g/dL (32.0-36.0); Mean Corpuscular Hemoglobin 31.5 pg (27.0-31.0); Mean Corpuscular Volume 94.1 fl (78.0-98.0); Mean Platelet Volume 9.8 fL (7.4-10.4); Platelet Count 154 10x3/uL (130-400); RBC Distribution Width 12.8 % (11.5-14.5); Red Blood Cell (RBC) Count 4.25 mill/uL (4.70-6.10); White Blood Cell (WBC) Count 8.1 10x3/uL (4.8-10.8)
[2023-05-15 20:54] LABS: Bacteria/HPF None Seen HPF (None Seen); Bilirubin Negative (Negative); Blood, Urine Negative (Negative); CAUTI Indications for Culture Alt mental st,lethar; Clarity Clear (Clear); Glucose, Urine (Dipstick) Normal (Negative); Ketone, Urine 10 mg/dL (Negative); Leukocyte Negative Leu/uL (Negative); Nitrite Negative (Negative); Protein, Urine (Dipstick) Negative (Neg-Trace); RBC/HPF 0-3 HPF (0-3); Specific Gravity, Urine 1.011 (1.002-1.036); Squamous Epithelial None Seen HPF (0-3); Urobilinogen Normal mg/dL (Less than 2); WBC/HPF 0-3 HPF (0-3); pH, Urine 6.5 (5.0-9.0)
[2023-05-15 20:55] LABS: INR-International Normal Ratio 1.2; Prothrombin Time 15.2 sec (12.0-14.7)
[2023-05-15 20:56] LABS: PTT 33.5 sec (22.9-36.1)
[2023-05-15 20:58] LABS: ALT (SGPT) 15 U/L (8-55); AST (SGOT) 26 U/L (5-34); Albumin 3.5 g/dL (3.4-4.8); Alkaline Phosphatase 66 U/L (40-110); Anion Gap 11 mmol/L (10-20); BUN (Urea Nitrogen) 16 mg/dL (8.4-25.7); Bilirubin, Total 0.8 mg/dL (0.2-1.2); Calc. Creatinine Clearance 0 mL/min (70-130); Calcium 8.4 mg/dL (7.8-10.44); Carbon Dioxide 23 mmol/L (23-31); Chloride 106 mmol/L (98-107); Estimated GFR 94; Globulin 2.8 g/dL (2.4-3.5); Glucose 89 mg/dL (80-115); Protein, Total 6.3 g/dL (5.8-8.1); Sodium 136 mmol/L (136-145)
[2023-05-15 21:01] LABS: Urine Culture Reflex No No
[2023-05-15 21:03] LABS: Troponin I 0.044 ng/mL (< 0.028)
[2023-05-15 23:03] LABS: Magnesium 1.8 mg/dL (1.6-2.6)
[2023-05-15] MEDS ORDERED: Ondansetron ODT 4 MG TAB SL PRN (23:15)
[2023-05-15] MEDS ORDERED: Acetaminophen 325 MG TAB PO PRN ×2 (23:15→23:56)
[2023-05-15] MEDS ORDERED: Ondansetron PF 4 MG/2 ML Vial IVP PRN ×2 (23:15→23:56)
[2023-05-15] MEDS ORDERED: Sodium Chloride 0.9% 1,000 ML IV SCH (23:15)
[2023-05-15 23:43] LABS: Critical Call Chem Troponin I NUR.MH12 @2343; Troponin I 0.827 ng/mL (< 0.028)
[2023-05-15] MEDS ORDERED: Ondansetron ODT 4 MG TAB PO PRN (23:56)
[2023-05-16] MEDS ORDERED: Magnesium 2 GM/50 ML BAG (IN WATER) ONE (00:49)
[2023-05-16] MEDS ORDERED: cefTRIAXone (ROCEPHIN) 1 GM VIAL ONE (00:50)
[2023-05-16] MEDS ORDERED: Enoxaparin 100 MG (1 mL) SYRINGE ONE ×2 (00:51→13:48)
[2023-05-16] MEDS ORDERED: Sodium Chloride 0.9% 100 ML ONE (00:51)
[2023-05-16 00:54] LABS: Legionella Urinary Ag Negative (Negative); Strep pneumo Urine Ag NEGATIVE (NEGATIVE)
[2023-05-16 01:13] LABS: SARS-CoV-2 NAA Rapid Test Not Detected (NotDetected)
[2023-05-16] MEDS: Enoxaparin 100 MG (1 mL) SYRINGE SC SCH ×2 (01:20→18:53)
[2023-05-16] MEDS: Doxycycline 100 MG in Sodium Chloride 0.9% 100 ML IVPB SCH (01:20)
[2023-05-16] MEDS: cefTRIAXone\\ROCEPHIN 1 GM in Sodium Chloride 0.9% 100 ML IVPB SCH (01:20)
[2023-05-16] MEDS: Sodium Chloride 0.9% 1,000 ML IV SCH (01:20)
[2023-05-16] MEDS: Magnesium 2 GM/50 ML(in water) 2 GM in Premix 1 BAG IVPB SCH (01:21)
[2023-05-16 03:36] LABS: Critical Call Chem Troponin I NUR.DW5 @0335; Troponin I 1.884 ng/mL (< 0.028)
[2023-05-16] MEDS ORDERED: Atorvastatin Calcium 40 MG TAB ONE (08:37)
[2023-05-16] MEDS: Atorvastatin Calcium 40 MG TAB PO SCH (08:42)
[2023-05-16] MEDS: Ezetimibe 10 MG TAB PO SCH (08:43)
[2023-05-16] MEDS ORDERED: Sacubitril 49 MG/Valsartan 51 MG TABLET PO SCH (09:00)
[2023-05-16] MEDS ORDERED: Enoxaparin 100 MG (1 mL) SYRINGE SC SCH (09:00)
[2023-05-16] MEDS ORDERED: Iopamidol 370 76% 100 ML VIAL ONE (11:24)
[2023-05-16 13:51] LABS: Critical Call Chem Troponin I NUR.LB16@1350; Troponin I 1.219 ng/mL (< 0.028)
[2023-05-16 17:37] VITALS: BMI 33.0
[2023-05-16] MEDS: Tamsulosin HCl 0.4 MG CAP PO SCH (21:22)
[2023-05-17 04:33] LABS: #Eosinphils 0.2 thou/uL (0.0-0.7); #Monocytes 0.6 thou/uL (0.11-0.59); %Basophils 0.3 % (0.0-1.0); %Eosinophils 3.4 % (0.0-10.0); %Lymphocytes 26.3 % (21.0-51.0); %Monocytes 8.9 % (0.0-10.0); %Neutrophils 60.9 % (42.0-75.0); Hematocrit 40.1 % (42.0-52.0); Hemoglobin 13.4 g/dL (14.0-18.0); Mean Corpuscular HGB CONC 33.4 g/dL (32.0-36.0); Mean Corpuscular Hemoglobin 32.1 pg (27.0-31.0); Mean Corpuscular Volume 96.2 fl (78.0-98.0); Mean Platelet Volume 9.9 fL (7.4-10.4); Platelet Count 158 10x3/uL (130-400); Red Blood Cell (RBC) Count 4.17 mill/uL (4.70-6.10); White Blood Cell (WBC) Count 6.6 10x3/uL (4.8-10.8)
[2023-05-17 04:56] LABS: Anion Gap 10 mmol/L (10-20); BUN (Urea Nitrogen) 16 mg/dL (8.4-25.7); Calc. Creatinine Clearance 122 mL/min (70-130); Calcium 8.4 mg/dL (7.8-10.44); Carbon Dioxide 23 mmol/L (23-31); Chloride 111 mmol/L (98-107); Estimated GFR 95; Glucose 95 mg/dL (80-115); Potassium 4.1 mmol/L (3.5-5.1); Sodium 140 mmol/L (136-145)
[2023-05-17] MEDS: Sacubitril 24MG/Valsartan 26 MG TAB PO SCH (21:22)
[2023-05-17] MEDS: Atorvastatin Calcium 40 MG TAB PO SCH (21:23)
[2023-05-18 04:29] LABS: #Eosinphils 0.2 thou/uL (0.0-0.7); #Monocytes 0.6 thou/uL (0.11-0.59); #Neutrophils 3.5 thou/uL (1.40-6.50); %Basophils 0.3 % (0.0-1.0); %Lymphocytes 28.7 % (21.0-51.0); %Monocytes 9.4 % (0.0-10.0); %Neutrophils 58.3 % (42.0-75.0); Hemoglobin 13.8 g/dL (14.0-18.0); Mean Corpuscular HGB CONC 33.7 g/dL (32.0-36.0); Mean Corpuscular Volume 95.1 fl (78.0-98.0); Mean Platelet Volume 9.8 fL (7.4-10.4); Platelet Count 162 10x3/uL (130-400); RBC Distribution Width 12.7 % (11.5-14.5); Red Blood Cell (RBC) Count 4.31 mill/uL (4.70-6.10); White Blood Cell (WBC) Count 5.9 10x3/uL (4.8-10.8)
[2023-05-18 05:03] LABS: Anion Gap 11 mmol/L (10-20); BUN (Urea Nitrogen) 16 mg/dL (8.4-25.7); Calc. Creatinine Clearance 130 mL/min (70-130); Calcium 8.4 mg/dL (7.8-10.44); Carbon Dioxide 23 mmol/L (23-31); Chloride 109 mmol/L (98-107); Estimated GFR 97; Glucose 104 mg/dL (80-115); Potassium 3.9 mmol/L (3.5-5.1); Sodium 139 mmol/L (136-145)
[2023-05-18] MEDS ORDERED: PROPOFOL 200 MG/20 ML VIAL ONE (08:06)
[2023-05-18] MEDS: Dronedarone HCl 400 MG TAB PO SCH (09:19)
[2023-05-18] MEDS: Sacubitril 49 MG/Valsartan 51 MG TABLET PO SCH (09:19)
[2023-05-18 16:17] VITALS: BP 145/79; TEMP 98.3
[2023-05-19] MEDS ORDERED: Apixaban 5 MG TAB PO SCH (09:00)
== END 2023-05-18 16:39 | disposition home or self-care (01) | DRG 280 ==
LOC: ERS 19:45 → ERHOLD 22:56 → 2NO 05-16 16:46 → OBSVTOIN 05-16 18:52
PROVIDERS: ADMIT Internal Medicine; ATTEND Emergency Medicine
PROC: 5A2204Z Restoration of Cardiac Rhythm, Single (ICD-10-PCS; principal; 2023-05-18)
DX: I48.0 Paroxysmal atrial fibrillation (principal); J18.9 Pneumonia, unspecified organism; I21.A1 Myocardial infarction type 2; I50.32 Chronic diastolic (congestive) heart failure; I25.10 Atherosclerotic heart disease of native coronary artery without angina pectoris; I11.0 Hypertensive heart disease with heart failure; I35.0 Nonrheumatic aortic (valve) stenosis; N40.0 Benign prostatic hyperplasia without lower urinary tract symptoms; Z79.899 Other long term (current) drug therapy; Z79.51 Long term (current) use of inhaled steroids; Z95.1 Presence of aortocoronary bypass graft; Z98.890 Other specified postprocedural states; Z79.82 Long term (current) use of aspirin; Z95.2 Presence of prosthetic heart valve; Z86.16 Personal history of COVID-19; Z11.52 Encounter for screening for COVID-19
CPT/HCPCS: 36415; 71045; 71275; 80048; 80053; 81001; 83735; 84145; 84484; 85025; 85610; 85730; 87449; 87899; 92960; 93005; 93010; 93306; 96374; J0696; J1650; J2704; J3475; J3490; J7050; Q9967